=== PATIENT | male | born 1940 | race African-American/Black ===

== ENCOUNTER → 2017-11-04 | Outpatient (CLI) | payer MEDICARE ==
[~2017-11-04] MED LIST: LEVAQUIN500 MG PO; TRAVATAN Z5 ML OP; ZOFRAN ODT4 MG
--- NOTE | 2017-11-04 18:07 | Diagnostic Imaging Report ---
PROCEDURE: CT CHEST WITHOUT CONTRAST CT scan of the chest WITHOUT intravenous contrast, using standard protocol. TECHNIQUE: The chest was scanned utilizing a multidetector helical scanner from the apex to the level of the adrenal glands. No IV contrast was administered. Coronal and sagittal multiplanar reformations were obtained. DLP: 477.67 mGy-cm COMPARISON: Chest radiograph 03/30/2016 INDICATIONS: CENTRILOBULAR EMPHYSEMA FINDINGS: Lines/tubes: None. Lungs and Airways: Mild biapical pleural-parenchymal scarring. Bilateral lower lobe atelectasis or scarring. No significant emphysema. Right lower lobe 0.8 cm cyst. Small centrilobular and ground glass opacities in the right upper lobe (for example on series 3 image 45) with mild mucus plugging. Subpleural left upper lobe 0.5 cm nodule (image 68) and anterior right upper lobe calcified subpleural nodules (image 38). Pleura: The pleural spaces are clear. Heart and mediastinum: The thyroid is obscured by dental amalgam streak artifacts. No significant mediastinal, hilar or axillary lymphadenopathy is seen. The heart and pericardium are within normal limits. Ascending aorta measures 3.8 cm, borderline ectatic. Pulmonary artery is normal in diameter. Mild coronary artery calcifications. Soft tissues: Normal. Abdomen: Limited unenhanced views of the liver show low attenuating 0.5 cm and 0.6 cm lesions in the left hepatic lobe which are too small to characterize but probably cysts. The left adrenal gland is partially visualized and appears prominent likely representing hyperplasia. Visualized portions of the kidneys are unremarkable. Bones: Mild S-shaped curvature of the spine. No acute or aggressive osseous lesions. Mild degenerative changes of the thoracic spine. IMPRESSION: Clustered right upper lobe centrilobular and ground glass opacities, likely infectious or inflammatory. Dictated by: Jai Hicks M.D. on 11/04/2017 at 18:08 Electronically approved by: Jai Hicks M.D. on 11/04/2017 at 18:08
== END ==
LOC: CT 16:30
PROVIDERS: ATTEND Internal Medicine
DX: J43.2 Centrilobular emphysema (principal)
CPT/HCPCS: 71250

== ENCOUNTER → 2017-12-05 | Outpatient (CLI) | payer MEDICARE ==
--- NOTE | 2017-12-06 11:31 | Diagnostic Imaging Report ---
PROCEDURE: CT CHEST WITHOUT CONTRAST CT scan of the chest WITHOUT intravenous contrast, using standard protocol. TECHNIQUE: The chest was scanned utilizing a multidetector helical scanner from the apex to the level of the adrenal glands. No IV contrast was administered because of without contrast. Coronal and sagittal multiplanar reformations were obtained. Total DLP: 485.65 mGy-cm COMPARISON: CT chest 11/04/2017 INDICATIONS: CHEST PAIN, SHORTNESS OF BREATH FINDINGS: Lines/tubes: None. Lungs and Airways: Mild biapical pleural-parenchymal scarring. Bilateral lower lobe atelectasis or scarring. No significant emphysema. Small centrilobular and ground glass opacities in the right upper lobe (for example on series 3 image 47) with mild mucus plugging. Subpleural left upper lobe 0.5 cm nodule (image 62) and anterior right upper lobe calcified subpleural nodules (image 36). Pleura: The pleural spaces are clear. Heart and mediastinum: The thyroid is obscured by dental amalgam streak artifacts. No significant mediastinal, hilar or axillary lymphadenopathy is seen. The heart and pericardium are within normal limits. Ascending aorta measures 4.1 cm, borderline ectatic. Pulmonary artery is normal in diameter. Mild coronary artery calcifications. Soft tissues: Normal. Abdomen: Limited unenhanced views of the liver show low attenuating 0.5 cm and 0.6 cm lesions in the left hepatic lobe which are too small to characterize but probably cysts. The left adrenal gland is partially visualized and appears prominent likely representing hyperplasia. Visualized portions of the kidneys are unremarkable. Bones: Mild S-shaped curvature of the spine. No acute or aggressive osseous lesions. Mild degenerative changes of the thoracic spine. IMPRESSION: Minimal improvement in clustered right upper lobe centrilobular and ground glass opacities, likely infectious or inflammatory. However, the last scan was exactly one month ago and the improvement is very minimal. Recommend repeat chest CT in 1 to 2 months to ensure resolution. Dictated by: Jr Salinas M.D. on 12/05/2017 at 19:31 Electronically approved by: Jr Salinas M.D. on 12/05/2017 at 19:31
== END ==
LOC: CT 17:42
PROVIDERS: ATTEND Internal Medicine
DX: R06.02 Shortness of breath (principal)
CPT/HCPCS: 71250

== ENCOUNTER → 2019-09-18 | Outpatient (CLI) | payer MEDICARE ==
--- NOTE | 2019-09-18 15:52 | Diagnostic Imaging Report ---
TECHNIQUE: Frontal and lateral views of the chest. INDICATION: ^[id number] ^[id number] ^Isolated proteinuria with minor glomerular abnormality COMPARISON: None. IMPRESSION: Lines and hardware: None. Heart and mediastinum: Normal cardiomediastinal silhouette. Lungs and pleura: Hyperinflated lungs with apical lucency may represent emphysematous changes. No focal airspace consolidation. No pleural effusion. No pneumothorax. Soft tissues and bones: No acute bony abnormality. Flowing anterior thoracic spine osteophytosis may be seen in ankylosing spondylitis. Signed by: Daniel Mays MD on 09/18/2019 3:48 PM
== END ==
LOC: RAD 14:42
PROVIDERS: ATTEND Internal Medicine
DX: R06.02 Shortness of breath (principal)
CPT/HCPCS: 71046

== ENCOUNTER → 2019-12-05 | Outpatient (CLI) | payer MEDICARE ==
--- NOTE | 2019-12-05 16:10 | Diagnostic Imaging Report ---
EXAM: Renal Ultrasound INDICATION: ^[id number] ^[id number] ^ASYMPTOMATIC MICROSCOPIC HEMATURIA COMPARISON: None TECHNIQUE: Transverse and longitudinal images of the kidneys and bladder were obtained. FINDINGS: Right Kidney: Length: 9.6 cm Appearance: Normal echogenicity. Collecting system: No hydronephrosis Stones: None Cyst/Mass: None Left Kidney: Length: 9.6 cm Appearance: Normal echogenicity. Collecting system: No hydronephrosis Stones: None Cyst/Mass: None Bladder: No mass or calculi. Prevoid volume estimate of 38 cc. The prostate measures 4.6 x 4.4 x 4.3 cm with volume estimate of 45 cc. IMPRESSION: No hydronephrosis or renal calculi. Signed by: Gela Bassett MD on 12/05/2019 4:07 PM
--- NOTE | 2019-12-05 16:21 | Diagnostic Imaging Report ---
EXAMINATION: ABDOMEN-1VIEW (KUB) INDICATION: Hematuria COMPARISON: Renal ultrasound 12/05/2019 FINDINGS: No radiographically apparent renal calculi. Nonobstructive bowel gas pattern. No free air. Dextroconvex curvature of the thoracolumbar spine. Prominent degenerative changes of the visualized spine. No acute osseous injury. Partially visualized lung bases appear clear. IMPRESSION: No radiographically apparent renal calculi. Signed by: Gela Bassett MD on 12/05/2019 4:17 PM
== END ==
LOC: US 15:10
PROVIDERS: ATTEND Urology
DX: R31.21 Asymptomatic microscopic hematuria (principal)
CPT/HCPCS: 74018; 76770; 76857

== ENCOUNTER → 2020-05-21 | Outpatient (CLI) | payer MEDICARE ==
--- NOTE | 2020-05-21 16:21 | Diagnostic Imaging Report ---
X-ray chest 2 views History: Simple bronchitis Comparison: 09/18/2019 Findings: Central airways: Unremarkable. Heart: Normal size. Mediastinal silhouettes: Unremarkable. Pleural spaces: No pleural effusion or pneumothorax. Lungs: No significant focal lung disease. Skeletal structures: Advanced thoracic kyphoscoliosis dextroconvexity. Also consider DISH. Extrathoracic soft tissues: Unremarkable. Impression: No significant cardiopulmonary abnormality on this exam considering the skeletal abnormality. Signed by: Chevy Su MD on 05/21/2020 4:18 PM
== END ==
LOC: RAD 15:49
PROVIDERS: ATTEND Internal Medicine
DX: J41.0 Simple chronic bronchitis (principal)
CPT/HCPCS: 71046

== ENCOUNTER → 2022-12-17 | Outpatient (CLI) | payer MEDICARE | LOC: RAD 13:32 | PROVIDERS: ATTEND Internal Medicine | DX: M25.551 Pain in right hip (principal); M54.50 Low back pain, unspecified | CPT/HCPCS: 72110; 72170 ==

== ENCOUNTER → 2023-11-18 | Outpatient (REF) | payer MEDICARE | LOC: RAD 14:16 | PROVIDERS: ATTEND Internal Medicine | DX: M54.50 Low back pain, unspecified (principal); S93.601A Unspecified sprain of right foot, initial encounter | CPT/HCPCS: 72110 ==

== ENCOUNTER → 2025-02-21 | Outpatient (REF) | payer MEDICARE | LOC: RAD 14:55 | PROVIDERS: ATTEND Internal Medicine | DX: M43.07 Spondylolysis, lumbosacral region (principal) | CPT/HCPCS: 72110 ==